=== PATIENT | female | born 1935 | race Caucasian/White ===

== ENCOUNTER → 2022-09-08 | Outpatient (CLI) | payer MEDICARE ==
--- NOTE | 2022-09-08 16:47 | Diagnostic Imaging Report ---
HISTORY: Thoracogenic scoliosis. COMPARISON: None TECHNIQUE: 3 views of the thoracic spine. FINDINGS: There is markedly exaggerated kyphosis of the thoracic spine. There is mild left convex curvature of the thoracolumbar junction measuring approximately 19 degrees. There is mild right convex curvature of the midthoracic spine measuring about 13 degrees. There are advanced degenerative changes throughout the thoracic spine. Vertebral body heights are generally preserved and no acute fracture is seen. There is mild cardiomegaly. IMPRESSION: 1. Degenerative changes with exaggerated kyphosis and mild S-shaped scoliotic curvature of the thoracic spine. Dictated by: Dictated on workstation # [id number]
== END ==
LOC: RAD FS 11:14
PROVIDERS: ATTEND Family Medicine
DX: M47.814 Spondylosis without myelopathy or radiculopathy, thoracic region (principal); M41.34 Thoracogenic scoliosis, thoracic region; Z71.89 Other specified counseling
CPT/HCPCS: 72072

== ENCOUNTER 2022-09-16 20:01 | Emergency (ER) | payer MEDICARE ==
--- NOTE | 2022-09-16 20:08 | ED Neurological Problem ---
General Stated Complaint: PSYCH|SLURRED SPEECH History of Present Illness Date Seen by Provider: Sep 16, 2022 Time Seen by Provider: 20:08 Initial Comments 87-year-old female with no significant PMH and who is not on any medications at home, is brought here by her family with complaints of generalized weakness, and reports of "not being her normal active self " for the past 2 days. Family reports that patient is usually very active and does not need any assistance in doing tasks or walking around. Patient herself reports that she feels more tired than usual. Patient drinks about 3 glasses of water a day. Denies fever and chills, cough, chest pain, palpitations, abdominal pain, nausea and vomiting, headache, blurry vision, dysuria, paralysis. Allergies and Home Medications Allergies Coded Allergies: No Known Drug Allergies (Unverified , 09/16/22) Patient Home Medication List Home Medication List Reviewed: Yes Review of Systems Review of Systems Constitutional: malaise Eyes: No Symptoms Reported Ears, Nose, Mouth, Throat: no symptoms reported Respiratory: no symptoms reported Cardiovascular: no symptoms reported Gastrointestinal: no symptoms reported Genitourinary: no symptoms reported Musculoskeletal: no symptoms reported Skin: no symptoms reported Psychiatric/Neurological: No Symptoms Reported Endocrine: No Symptoms Reported Hematologic/Lymphatic: No Symptoms Reported Physical Exam Vital Signs Vital Signs - First Documented 09/16/22 20:06 Pulse 112 Resp 16 B/P (MAP) 130/93 (105) Pulse Ox 95 O2 Delivery Room Air Capillary Refill : Height, Weight, BMI Height: '" Weight: lbs. oz. kg; BMI Method: General Appearance: WD/WN, no apparent distress, thin HEENT: PERRL/EOMI, normal ENT inspection, TMs normal, pharynx normal Neck: full range of motion Respiratory: chest non-tender, lungs clear, normal breath sounds Cardiovascular: regular rate, rhythm, no edema Gastrointestinal: non tender, soft Back: no CVA tenderness Extremities: normal range of motion Neurologic/Psychiatric: mica builder II-XII nml as tested, no motor/sensory deficits, alert, normal mood/affect, oriented x 3 Crainal Nerves: normal hearing, normal speech, PERRL Coordination/Gait: normal finger to nose, normal gait Motor/Sensory: no motor deficit, no sensory deficit, no pronator drift Skin: normal color Focused Exam Lactate Level 09/16/22 20:20: Lactic Acid Level 1.50 Lactic Acid Level Laboratory Tests Test 09/16/22 20:20 Lactic Acid Level 1.50 MMOL/L (0.50-2.00) Progress/Results/Core Measures Results/Orders Lab Results Laboratory Tests Test 09/16/22 20:20 09/16/22 20:25 Range/Units White Blood Count 5.3 4.3-11.0 10^3/uL Red Blood Count 3.68 L 3.80-5.11 10^6/uL Hemoglobin 11.0 L 11.5-16.0 g/dL Hematocrit 33 L 35-52 % Mean Corpuscular Volume 89 80-99 fL Mean Corpuscular Hemoglobin 30 25-34 pg Mean Corpuscular Hemoglobin Concent 34 32-36 g/dL Red Cell Distribution Width 12.7 10.0-14.5 % Platelet Count 301 130-400 10^3/uL Mean Platelet Volume 8.4 L 9.0-12.2 fL Immature Granulocyte % (Auto) 1 % Neutrophils (%) (Auto) 89 H 42-75 % Lymphocytes (%) (Auto) 6 L 12-44 % Monocytes (%) (Auto) 4 0-12 % Eosinophils (%) (Auto) 0 0-10 % Basophils (%) (Auto) 0 0-10 % Neutrophils # (Auto) 4.7 1.8-7.8 10^3/uL Lymphocytes # (Auto) 0.3 L 1.0-4.0 10^3/uL Monocytes # (Auto) 0.2 0.0-1.0 10^3/uL Eosinophils # (Auto) 0.0 0.0-0.3 10^3/uL Basophils # (Auto) 0.0 0.0-0.1 10^3/uL Immature Granulocyte # (Auto) 0.0 0.0-0.1 10^3/uL Neutrophils % (Manual) 90 % Lymphocytes % (Manual) 5 % Monocytes % (Manual) 4 % Band Neutrophils 1 % Prothrombin Time 13.1 12.2-14.7 SEC INR Comment 0.9 0.8-1.4 Activated Partial Thromboplast Time 31 24-35 SEC Sodium Level 128 L 135-145 MMOL/L Potassium Level 3.6 3.6-5.0 MMOL/L Chloride Level 93 L 98-107 MMOL/L Carbon Dioxide Level 23 21-32 MMOL/L Anion Gap 12 5-14 MMOL/L Blood Urea Nitrogen 12 7-18 MG/DL Creatinine 0.53 L 0.60-1.30 MG/DL Estimat Glomerular Filtration Rate 90 BUN/Creatinine Ratio 23 Glucose Level 196 H 70-105 MG/DL Lactic Acid Level 1.50 0.50-2.00 MMOL/L Calcium Level 9.1 8.5-10.1 MG/DL Corrected Calcium 9.2 8.5-10.1 MG/DL Magnesium Level 1.9 1.6-2.4 MG/DL Total Bilirubin 0.5 0.1-1.0 MG/DL Aspartate Amino Transf (AST/SGOT) 18 5-34 U/L Alanine Aminotransferase (ALT/SGPT) 19 0-55 U/L Alkaline Phosphatase 94 40-136 U/L Troponin I < 0.30 <0.30 NG/ML Total Protein 7.5 6.4-8.2 GM/DL Albumin 3.9 3.2-4.5 GM/DL Urine Color YELLOW Urine Clarity CLEAR Urine pH 6.0 5-9 Urine Specific [place] 1.025 H 1.016-1.022 Urine Protein 1+ H NEGATIVE Urine Glucose (UA) 1+ H NEGATIVE Urine Ketones TRACE H NEGATIVE Urine Nitrite NEGATIVE NEGATIVE Urine Bilirubin NEGATIVE NEGATIVE Urine Urobilinogen 0.2 < = 1.0 MG/DL Urine Leukocyte Esterase NEGATIVE NEGATIVE Urine RBC (Auto) 1+ H NEGATIVE Urine RBC 5-10 H /HPF Urine WBC 5-10 H /HPF Urine Squamous Epithelial Cells 10-25 H /HPF Urine Crystals PRESENT H /LPF Urine Bacteria MODERATE H /HPF Urine Casts PRESENT /LPF Urine Hyaline Casts 2-5 H /LPF Urine Mucus LARGE H /LPF Urine Yeast FEW H /HPF Urine Culture Indicated YES Urine Opiates Screen NEGATIVE NEGATIVE Urine Oxycodone Screen NEGATIVE NEGATIVE Urine Methadone Screen NEGATIVE NEGATIVE Urine Propoxyphene Screen NEGATIVE NEGATIVE Urine Barbiturates Screen NEGATIVE NEGATIVE Ur Tricyclic Antidepressants Screen NEGATIVE NEGATIVE Urine Phencyclidine Screen NEGATIVE NEGATIVE Urine Amphetamines Screen NEGATIVE NEGATIVE Urine Methamphetamines Screen NEGATIVE NEGATIVE Urine Benzodiazepines Screen NEGATIVE NEGATIVE Urine Cocaine Screen NEGATIVE NEGATIVE Urine Cannabinoids Screen NEGATIVE NEGATIVE My Orders Orders - SMITA MEMBRENO MD Cbc With Automated Diff (09/16/22 20:09) Comprehensive Metabolic Panel (09/16/22 20:09) Drug Screen Stat (Urine) (09/16/22 20:09) Lactic Acid Analyzer (09/16/22 20:09) Magnesium (09/16/22 20:09) Protime With Inr (09/16/22 20:09) Partial Thromboplastin Time (09/16/22 20:09) Ua Culture If Indicated (09/16/22 20:09) Troponin I Fs (09/16/22 20:09) Continuous Ekg Monitoring (09/16/22 20:10) Ekg Tracing (09/16/22 20:10) Chest 1 View Ap/Pa Only (09/16/22 20:11) Manual Differential (09/16/22 20:20) Urine Culture (09/16/22:25) Ed Iv/Invasive Line Start (09/16/22 21:24) Ns Iv 1000 Ml (Sodium Chloride 0.9%) (09/16/22 21:30) Ct Head Wo (09/16/22 21:25) Vital Signs/I&O 09/16/22 20:06 Pulse 112 Resp 16 B/P (MAP) 130/93 (105) Pulse Ox 95 O2 Delivery Room Air Progress Progress Note : Progress Note 1. GENERALIZED WEAKNESS: HYPONATREMIA & EARLY UTI: - CT HEAD: no acute findings - CXR: no acute findings except for esophageal hernia - CBC: normal WBC - CMP: s. Na is 128, otherwise unremarkable - UA is positive for WBC, bacteria, crystals. Nitrate and leukocyte esterases negative. This may be possibly be an early UTI causing the symptoms along with hyponatremia. -We will treat for early UTI with Keflex 500 mg twice daily for 5 days with the first tablet given in the ER. -Advised to follow-up with PCP within the next 1 to 2 days for repeat of BMP to check sodium levels. -Offered admission to observation unit but patient and family refused and wants patient to go home -Adequate hydration advised with 8 or more glasses of water per day -NIHHS score is 0, without any neurological deficits, so stroke is unlikely. -The patient was seen in the ED, and treated appropriately to presentation at a specific point in time. Patient is informed that there is a possibility that disease and illness can evolve and change in acuity rapidly or slowly after patient is discharged from the ER. Precautionary advice given to the patient for immediate return to ER if symptoms worsen or do not resolve, and to seek emergency care sooner rather than later. Pt also advised on the importance of PCP follow up and compliance with management and follow up plan with PCP and/or specialist, as this is part of the management plan. Pt verbally expressed understanding. Diagnostic Imaging Diagonstic Imaging: Xray, CT Plain Films/CT/US/NM/MRI: head Comments [facility], [place] NAME: [facility] REC#: [id number] PT STATUS: REG ER : 1935 PHYSICIAN: SMITA MEMBRENO MD ADMIT DATE: 09/16/22/ER FS Signed Date of Exam:09/16/22 CHEST 1 VIEW AP/PA ONLY INDICATION: Generalized weakness, not feeling right since yesterday. A little confused, tired. TECHNIQUE: Single view chest 8:21 PM. CORRELATION STUDY: None. FINDINGS: Heart size enlarged. Vasculature within normal limits. Density in the low mid chest favors probable sizable esophageal hernia. Hyperinflated lung braswell demonstrate no significant infiltrate. No sizable effusion or pneumothorax. IMPRESSION: Cardiac enlargement without overt failure. Likely rather sizable esophageal hernia. Dictated by: Dictated on workstation # [id number] Dict: 09/16/222035 Trans: 09/16/222204 [facility] [id number] Interpreted by: ALDO BROWN DO Electronically signed by: ALDO BROWN DO 09/16/225[facility], [place] NAME: [facility] REC#: [id number] PT STATUS: REG ER : 1935 PHYSICIAN: SMITA MEMBRENO MD ADMIT DATE: 09/16/22/ER FS Signed Date of Exam:09/16/22 CT HEAD WO PROCEDURE: CT head without contrast. TECHNIQUE: Multiple contiguous axial images were obtained through the brain without the use of intravenous contrast. Auto Exposure Controls were utilized during the CT exam to meet ALARA standards for radiation dose reduction. INDICATION: 87-year-old female, feeling more tired. Generalized weakness. A little confused. CORRELATION: None FINDINGS: There are diffuse atrophic changes with prominence of the ventricles and sulci. There are scattered areas of decreased attenuation, nonspecific but likely changes of chronic small vessel ischemic disease. There is otherwise normal diego-white differentiation. No abnormal areas of attenuation to suggest edema from ischemia. There is no midline shift or mass effect. No evidence for acute intracranial hemorrhage or abnormal extra-axial fluid collection. Bony calvarium is intact. Paranasal sinuses are clear. Mastoid air cells also appear clear. IMPRESSION: 1. No CT evidence for acute intracranial abnormality. 2. Age-related atrophic changes with changes of small vessel ischemic disease. Dictated by: Dictated on workstation # [id number] Dict: 09/16/222148 Trans: 09/16/222205 DO [id number] Interpreted by: ALDO BROWN DO Electronically signed by: ALDO BROWN DO 09/16/222205 Departure Impression Primary Impression: Generalized weakness Additional Impressions: Hyponatremia Urinary tract infection in elderly patient Disposition: 01 HOME, SELF-CARE Condition: Stable Departure-Patient Inst. Referrals: SHANEL HERNANDEZ MD (PCP) Primary Care Physician Patient Instructions: Urinary Tract Infection, Adult (DC), Hyponatremia (DC), Generalized Weakness (DC) Add. Discharge Instructions: -We will treat for early UTI with Keflex 500 mg twice daily for 5 days with the first tablet given in the ER. -Advised to follow-up with PCP within the next 1 to 2 days for repeat of BMP to check sodium levels. Scripts Cephalexin (Cephalexin) 500 Mg Tablet 500 MG PO BID for 5 Days, #10 TAB Prov: SMITA MEMBRENO MD 09/16/22 SMITA MEMBRENO MD Sep 16, 2022 20:08
[2022-09-16 20:25] LABS: BASOPHILS % (AUTO) 0 % (0-10); EOSINOPHILS % (AUTO) 0 % (0-10); HEMATOCRIT 33 % (35-52); LYMPHOCYTES # (AUTO) 0.3 10^3/uL (1.0-4.0); LYMPHOCYTES % (AUTO) 6 % (12-44); MEAN CORPUSCULAR HEMOGLOBIN 30 pg (25-34); MEAN CORPUSCULAR HGB CONC 34 g/dL (32-36); MEAN CORPUSCULAR VOLUME 89 fL (80-99); MEAN PLATELET VOLUME 8.4 fL (9.0-12.2); MONOCYTES # (AUTO) 0.2 10^3/uL (0.0-1.0); MONOCYTES % (AUTO) 4 % (0-12); NEUTROPHILS # (AUTO) 4.7 10^3/uL (1.8-7.8); NEUTROPHILS % (AUTO) 89 % (42-75); PLATELET COUNT 301 10^3/uL (130-400); WHITE BLOOD COUNT 5.3 10^3/uL (4.3-11.0)
[2022-09-16 20:34] LABS: BILIRUBIN,URINE NEGATIVE (NEGATIVE); CLARITY,URINE CLEAR; COLOR,URINE YELLOW; GLUCOSE, URINE (UA) 1+ (NEGATIVE); KETONES,URINE TRACE (NEGATIVE); LEUKOCYTE ESTERASE ,URINE NEGATIVE (NEGATIVE); NITRITE,URINE NEGATIVE (NEGATIVE); PROTEIN,URINE 1+ (NEGATIVE)
[2022-09-16 20:39] LABS: BACTERIA,URINE MODERATE /HPF; YEAST,URINE FEW /HPF
[2022-09-16 20:39] LABS: INR 0.9 (0.8-1.4); PROTHROMBIN TIME PATIENT 13.1 SEC (12.2-14.7)
--- NOTE | 2022-09-16 20:39 | Diagnostic Imaging Report ---
INDICATION: Generalized weakness, not feeling right since yesterday. A little confused, tired. TECHNIQUE: Single view chest 8:21 PM. CORRELATION STUDY: None. FINDINGS: Heart size enlarged. Vasculature within normal limits. Density in the low mid chest favors probable sizable esophageal hernia. Hyperinflated lung braswell demonstrate no significant infiltrate. No sizable effusion or pneumothorax. IMPRESSION: Cardiac enlargement without overt failure. Likely rather sizable esophageal hernia. Dictated by: Dictated on workstation # [id number]
[2022-09-16 20:44] LABS: BENZODIAZEPINES SCREEN URINE NEGATIVE (NEGATIVE); COCAINE SCREEN URINE NEGATIVE (NEGATIVE)
[2022-09-16 20:45] LABS: ALANINE AMINOTRANSFERASE 19 U/L (0-55); ALBUMIN 3.9 GM/DL (3.2-4.5); ALKALINE PHOSPHATASE 94 U/L (40-136); BILIRUBIN,TOTAL 0.5 MG/DL (0.1-1.0); BUN/CREATININE RATIO 23; CALCIUM 9.1 MG/DL (8.5-10.1); CARBON DIOXIDE 23 MMOL/L (21-32); CHLORIDE 93 MMOL/L (98-107); CREATININE SERUM 0.53 MG/DL (0.60-1.30); GFR ESTIMATED 90; GLUCOSE 196 MG/DL (70-105); MAGNESIUM 1.9 MG/DL (1.6-2.4); POTASSIUM 3.6 MMOL/L (3.6-5.0); SODIUM 128 MMOL/L (135-145); TOTAL PROTEIN 7.5 GM/DL (6.4-8.2)
[2022-09-16 20:45] LABS: AMPHETAMINE SCREEN, URINE NEGATIVE (NEGATIVE); BARBITURATE SCREEN URINE NEGATIVE (NEGATIVE); CANNABINOID SCREEN, URINE NEGATIVE (NEGATIVE); METHADONE STAT NEGATIVE (NEGATIVE); OPIATE SCREEN URINE NEGATIVE (NEGATIVE); OXYCODONE STAT NEGATIVE (NEGATIVE); PROPOXYPHENE STAT NEGATIVE (NEGATIVE); TRICYCLIC ANTIDEPRESSANTS SCRE NEGATIVE (NEGATIVE)
[2022-09-16 21:05] LABS: BAND NEUTROPHILS 1 %; LYMPHOCYTES % (MANUAL) 5 %; MONOCYTES % (MANUAL) 4 %; NEUTROPHILS % (MANUAL) 90 %
[2022-09-16] MEDS ORDERED: NS IV 1000 ML 1,000 ML IV SCH (21:30)
--- NOTE | 2022-09-16 21:52 | Diagnostic Imaging Report ---
PROCEDURE: CT head without contrast. TECHNIQUE: Multiple contiguous axial images were obtained through the brain without the use of intravenous contrast. Auto Exposure Controls were utilized during the CT exam to meet ALARA standards for radiation dose reduction. INDICATION: 87-year-old female, feeling more tired. Generalized weakness. A little confused. CORRELATION: None FINDINGS: There are diffuse atrophic changes with prominence of the ventricles and sulci. There are scattered areas of decreased attenuation, nonspecific but likely changes of chronic small vessel ischemic disease. There is otherwise normal diego-white differentiation. No abnormal areas of attenuation to suggest edema from ischemia. There is no midline shift or mass effect. No evidence for acute intracranial hemorrhage or abnormal extra-axial fluid collection. Bony calvarium is intact. Paranasal sinuses are clear. Mastoid air cells also appear clear. IMPRESSION: 1. No CT evidence for acute intracranial abnormality. 2. Age-related atrophic changes with changes of small vessel ischemic disease. Dictated by: Dictated on workstation # [id number]
[2022-09-16] MEDS ORDERED: CEPHALEXIN 250 MG (KEFLEX) CAP PO STA (22:29)
[2022-09-16] MEDS ORDERED: CEPHALEXIN 250 MG (KEFLEX) CAP PO ONE (22:32)
[2022-09-16] MEDS ORDERED: CEPH500T PO (22:36)
[2022-09-16 22:43] VITALS: BP 151/72
== END 2022-09-16 22:43 | disposition home or self-care (01) ==
LOC: EDUNIT# 20:01 → ER FS 20:03
DX: E87.1 Hypo-osmolality and hyponatremia (principal); N39.0 Urinary tract infection, site not specified; Z28.310 Unvaccinated for COVID-19
CPT/HCPCS: 36415; 70450; 71045; 80053; 80306; 81000; 83605; 83735; 84484; 85007; 85027; 85610; 85730; 87088; 93005